=== PATIENT | female | born 1975 | race Caucasian/White ===

== ENCOUNTER 2016-04-21 12:51 | Emergency (ER) | payer SELFPAY ==
[2016-04-21 13:14] VITALS: BP 137/82; PULSE 75; TEMP 98.9; BMI 50.4
--- NOTE | 2016-04-21 13:17 | EDPRACDOC ---
- General Information Chief Complaint: Back Pain Stated Complaint: RT SIDED BACK PAIN HARD TO TAKE A DEEP BREATH Time Seen by Provider: 04/21/16 13:13 Home Medications: Home Medications Hydrocodone Bit/Acetaminophen [Lortab 5/325] 1 tab PO Q4H PRN #15 tab 02/13/15 Ketorolac Tromethamine [Toradol] 10 mg PO Q6H PRN #20 tab 02/13/15 Prednisone [Deltasone, Orasone] 20 mg PO DAILY #24 tab 02/13/15 Cyclobenzaprine HCl [Flexeril] 10 mg PO TID PRN #20 tablet 04/21/16 Ibuprofen Tablet [Motrin] 800 mg PO TID PRN #30 tab 04/21/16 Allergies/Adverse Reactions: Allergies Allergy/AdvReac Type Severity Reaction Status Date / Time No Known Allergies Allergy Verified 02/13/15 08:37 - History of Present Illness Onset: SEVERAL DAYS HPI: PT STATES THAT SHE HAS HAD RIGHT UPPER BACK PAIN FOR SEVERAL DAYS, STATES PAIN IS SHARP AND STABBING, WORSE WITH TAKING A DEEP BREATH. PT DENIES KNOWN INJURY , STATES SHE HAS BEEN "LIFTING A 30 LB BABY", STATES SHE HAS BEEN USING ALEVE WITHOUT RELIEF. Pain Location: Reports: Right, Thoracic Pain Radiates To: Reports: None Pain Caused By: Reports: Lifting Circumstances: Reports: Unknown Relevant History: Reports: None Currently ?: No Pain Severity: Reports: Severe Pain Quality: Reports: Sharp, Stabbing Worsened By: Reports: Breathing, Movement Associated Signs and Symptoms: Reports: None ED Past Medical History - History Reviewed Yes Nurses notes reviewed and agree except as marked No Past Medical History: Yes Patient has no past medical history - Social Medical History Smoking Status: Never smoker EDM Review of Systems - Review of Systems Neurological: negative: Dizziness, Numbness, Weakness Musculoskeletal: Back Integumentary: No Symptoms Reported - Physical Exam Constitutional: Alert (Awake), No apparent distress Oriented to: Time, Person, Place Last recorded Vital Signs: Last Vital Signs Temp 98.9 F 04/21/16 13:14 Pulse 75 04/21/16 13:14 Resp 20 04/21/16 13:14 BP 137/82 04/21/16 13:14 Pulse Ox 96 04/21/16 13:14 Oxygen Pulse Oxygen Saturation 96 O2 Device Room Air Oxygen Flow Rate Fraction of Inspired Oxygen ( FIO2) - HEENT Head: Normal ( normocephalic) - Respiratory/Cardiovascular Respiratory: Normal - CTA (BBS clear to auscultation without adventitious sounds ) Cardiovascular: Normal (RRR without murmur, gallop or rub) - Integumentary Skin: Normal, Warm, Dry Lymphatics: Normal (no adenopathy) - Neurologic Memory Impaired: Normal Motor Function: Normal (Normal tone, Pulses 2+ No cyanosis or edema, FROM) Cranial Nerve: Normal (CN II-X11 intact sensation, strength 5/5) Cerebellar: Normal Mood Description: Normal Perception: Normal ED Back Exam - Neurologic Motor Deficit: None - Musculoskeletal Cervical: Normal Thoracic: Tender (RIGHT TRAPEZIUS) Lumbar: Normal Midline: Normal Paraspinous: Normal Straight Leg Raise: Negative Pelvis: Normal - Differential Diagnosis Musculoskeletal pain, Strain Decision Time to Discharge: 13:18 - Departure Disposition: Home Condition: Stable Final Diagnosis: Thoracic back pain Qualifiers: Chronicity: acute Back pain laterality: right Qualified Code(s): M54.6 - Pain in thoracic spine Instructions: Thoracic (Lumbar) Strain Education/Counseling Given To: Patient Education/Counseling Given Regarding: Diagnosis, Treatment, Prognosis, Follow Up Referrals: Michael Villatoro MD [Primary Care Provider] - One Week Prescriptions: Cyclobenzaprine HCl [Flexeril] 10 mg PO TID PRN #20 tablet PRN Reason: Muscle Spasms Ibuprofen Tablet [Motrin] 800 mg PO TID PRN #30 tab PRN Reason: Pain Additional Instructions: Back Pain: apply warm compresses to affected area 20 mins at a time 4 - 5 times daily as needed for pain
== END 2016-04-21 13:28 | disposition home or self-care (01) ==
LOC: EDMC 12:51
DX: M54.6 Pain in thoracic spine (principal)
CPT/HCPCS: 99282